=== PATIENT | female | born 1995 | race Caucasian/White ===

== ENCOUNTER 2021-09-18 12:00 | Inpatient (IN) | payer MEDICAID, OTHER ==
[~2021-09-18] VITALS: Ht 160 cm; Wt 53.6 kg
[2021-09-18] MEDS ORDERED: ONDANSETRON HCL 4 MG/2 ML VIAL IV ONE (12:30)
[2021-09-18] MEDS ORDERED: MORPHINE SULFATE INJECTION 2 MG/ML SYRG IV ONE (12:30)
[2021-09-18] MEDS ORDERED: SODIUM CHLORIDE 0.9% 500 ML IVB ONE (12:30)
[2021-09-18 13:28] LABS: Eosinophils # (auto) 0.1 10 ^3/uL (0-0.8); Eosinophils % (auto) 0.5 % (0.0-7.0)
[2021-09-18 13:30] LABS: Basophils # (auto) 0.2 10 ^3/uL (0-0.2); Basophils % (auto) 1.1 % (0.0-2.0); Hematocrit 21.1 % (36.0-46.0); Hemoglobin 7.4 g/dL (12.2-16.2); Lymphocytes % (auto) 13.8 % (10.0-50.0); Mean Corpuscular Hemoglobin 32.4 pg (28.0-32.0); Mean Corpuscular Hgb Conc. 35.1 g/dL (32.0-36.0); Mean Corpuscular Volume 92.2 fL (80.0-100.0); Monocytes # (auto) 0.6 10 ^3/uL (0-1.3); Neutrophils # (auto) 11.4 10 ^3/uL (1.6-8.6); Neutrophils % (auto) 80.6 % (37.0-80.0); Nucleated Red Blood Cells % 0.2 %; Red Blood Cells 2.29 10^6/uL (4.0-5.20); Red Cell Distribution Width 12.4 % (11.8-14.3); White Blood Cell 14.2 10^3/uL (4.4-10.8)
[2021-09-18 13:46] LABS: Albumin 2.9 g/dL (3.4-5.0); Calcium 8.1 mg/dL (8.5-10.1); Potassium 3.7 mmol/L (3.5-5.1)
[2021-09-18 13:48] LABS: BUN/Creatinine Ratio 23.5
[2021-09-18 13:50] LABS: Bilirubin, Total 0.4 mg/dL (0.2-1.0); Total Protein 5.7 g/dL (6.4-8.2)
[2021-09-18 14:18] LABS: INR 0.98 (0.9-1.15); Partial Thromboplastin Time 23.3 sec (23.6-33.0)
[2021-09-18] MEDS ORDERED: IOHEXOL 300 MG/ML 100ML BOTTLE IJ ONE (14:51)
[2021-09-18] MEDS ORDERED: LACT. RINGERS/OXYTOCIN 20UNITS 1,000 ML IV ONE (15:00)
[2021-09-18 16:40] VITALS: BP 119/38
[2021-09-18 17:00] VITALS: BP 109/53
[2021-09-18] MEDS: MORPHINE SULFATE 4 MG/ML SYR/VIAL IV PRN ×2 (17:14→23:28)
[2021-09-18 17:29] VITALS: BP 109/53
[2021-09-18 17:55] VITALS: BP 109/55
[2021-09-18] MEDS ORDERED: metroNIDAZOLE 500MG/100ML 100 ML IV ONE (18:15)
[2021-09-18] MEDS ORDERED: SUCCINYLCHOLINE CHLORIDE 20 MG/ML 10ML VIAL IV ONE (18:45)
[2021-09-18] MEDS ORDERED: FAMOTIDINE (10MG/ML) 2ML VL IV ONE (18:45)
[2021-09-18] MEDS ORDERED: ROCURONIUM 10MG/ML 10ML VIAL IV ONE (18:45)
[2021-09-18] MEDS ORDERED: MIDAZOLAM HCL 2MG/2ML 2ml VIAL (1mg/ml) ONE (18:46)
[2021-09-18] MEDS ORDERED: HYDROmorphone HCL 2 MG/ML VL ONE (18:46)
[2021-09-18] MEDS ORDERED: fentaNYL CITRATE 100 MCG/2 ML VL ONE (18:46)
[2021-09-18] MEDS ORDERED: DexAMETHasone SOD PHOS 10MG/1ML VIAL INJ ONE (18:47)
[2021-09-18] MEDS ORDERED: LIDOCAINE 2% (LOCAL ANESTH.) PF 5ml SDV ONE (18:47)
[2021-09-18] MEDS ORDERED: PROPOFOL 10 MG/ML 20 ML IV ONE (18:47)
[2021-09-18] MEDS ORDERED: ONDANSETRON HCL 4 MG/2 ML VIAL ONE (18:47)
[2021-09-18] MEDS ORDERED: GLYCOPYRROLATE 0.2 MG/ML 1ML VIAL ONE (18:47)
[2021-09-18] MEDS ORDERED: ceFAZolin 1GM/50ML 100 ML IV ONE (18:47)
[2021-09-18] MEDS ORDERED: oxyTOCIN 10 UNIT/ML 10ML VIAL ONE (19:17)
[2021-09-18] MEDS ORDERED: CARBOPROST TROMETHAMINE 250 MCG/1ML VIAL IM ONE (19:30)
[2021-09-18] MEDS ORDERED: METHYLERGONOVINE MALEATE 0.2 MG/ML AMP IM ONE (19:30)
[2021-09-18] MEDS ORDERED: MEPERIDINE HCL (25 MG/ML) 1ML VIAL ONE (20:11)
[2021-09-18] MEDS: LACT. RINGERS/OXYTOCIN 20UNITS 1,000 ML IV SCH (20:45)
[2021-09-18] MEDS ORDERED: ONDANSETRON HCL 4 MG/2 ML VIAL IV PRN ×2 (20:45→21:00)
[2021-09-18] MEDS ORDERED: HYDROmorphone HCL 2 MG/ML VL IV PRN ×2 (20:45→21:00)
[2021-09-18] MEDS ORDERED: OXYTOCIN 10UNIT/ML 1ML VIAL ONE (20:49)
[2021-09-18 21:40] VITALS: BP 102/41
[2021-09-18 22:00] VITALS: BP 102/41
[2021-09-19] MEDS: LACT. RINGERS/OXYTOCIN 20UNITS 1,000 ML IV SCH (03:25)
[2021-09-19] MEDS: MORPHINE SULFATE 4 MG/ML SYR/VIAL IV PRN ×2 (04:06→09:28)
[2021-09-19 05:00] VITALS: BP 102/55
[2021-09-19] MEDS: SODIUM CHLORIDE 0.9% 1,000 ML IV SCH ×3 (05:48→08:39)
[2021-09-19] MEDS ORDERED: metroNIDAZOLE 500MG/100ML 100 ML IV SCH (06:00)
[2021-09-19 06:05] LABS: Basophils # (auto) 0.1 10 ^3/uL (0-0.2); Basophils % (auto) 0.5 % (0.0-2.0); Eosinophils # (auto) 0 10 ^3/uL (0-0.8); Hematocrit 24.3 % (36.0-46.0); Hemoglobin 8.7 g/dL (12.2-16.2); Lymphocytes # (auto) 1.2 10 ^3/uL (0.4-5.4); Lymphocytes % (auto) 9.8 % (10.0-50.0); Mean Corpuscular Hemoglobin 31.8 pg (28.0-32.0); Mean Corpuscular Hgb Conc. 35.7 g/dL (32.0-36.0); Monocytes # (auto) 0.3 10 ^3/uL (0-1.3); Monocytes % (auto) 2.1 % (0.0-12.0); Neutrophils # (auto) 10.4 10 ^3/uL (1.6-8.6); Neutrophils % (auto) 87.6 % (37.0-80.0); Nucleated Red Blood Cells % 0.1 %; Red Blood Cells 2.73 10^6/uL (4.0-5.20); Red Cell Distribution Width 13.2 % (11.8-14.3); White Blood Cell 11.9 10^3/uL (4.4-10.8)
[2021-09-19 06:24] LABS: INR 0.98 (0.9-1.15)
[2021-09-19 06:37] LABS: Albumin 2.3 g/dL (3.4-5.0); Calcium 7.3 mg/dL (8.5-10.1); Potassium 4.1 mmol/L (3.5-5.1)
[2021-09-19 06:38] LABS: BUN/Creatinine Ratio 16.7
[2021-09-19 06:41] LABS: Bilirubin, Total 0.6 mg/dL (0.2-1.0); Total Protein 4.7 g/dL (6.4-8.2)
[2021-09-19] MEDS ORDERED: LACTATED RINGER'S 1,000 ML IV SCH (08:30)
[2021-09-19 08:55] VITALS: BP 100/48
[2021-09-19 09:46] VITALS: BP 100/60
[2021-09-19 13:00] VITALS: BP 100/36
== END 2021-09-19 13:45 | disposition home or self-care (01) | DRG 543 ==
LOC: ER 12:00 → OVERFLOW 16:19 → WEST WING 21:40
PROVIDERS: ADMIT Registered Nurse; ATTEND Family Medicine
PROC: 30233N1 Transfusion of Nonautologous Red Blood Cells into Peripheral Vein, Percutaneous Approach (ICD-10-PCS; 2021-09-18)
PROC: 10D18ZZ Extraction of Products of Conception, Retained, Via Natural or Artificial Opening Endoscopic (ICD-10-PCS; principal; 2021-09-19)
DX: O03.4 Incomplete spontaneous abortion without complication (principal); D62 Acute posthemorrhagic anemia; N85.2 Hypertrophy of uterus; N93.9 Abnormal uterine and vaginal bleeding, unspecified; Z20.822 Contact with and (suspected) exposure to COVID-19; Z82.49 Family history of ischemic heart disease and other diseases of the circulatory system; Z80.0 Family history of malignant neoplasm of digestive organs
CPT/HCPCS: 36415; 74177; 76856; 80053; 84702; 85025; 85610; 85730; 86850; 86900; 86901; 86920; 96365; 96366; 96367; 96375; 96376; 99291; G0378; J0330; J0690; J1100; J2001; J2250; J2405; J2590; J2704; J3490

== ENCOUNTER 2021-12-04 12:53 | Emergency (ER) | payer MEDICAID ==
[~2021-12-04] VITALS: Ht 160 cm; Wt 49.9 kg
[2021-12-04 13:23] VITALS: BP 127/69
== END 2021-12-04 13:35 | disposition home or self-care (01) ==
LOC: ER 12:53
DX: S61.012A Laceration without foreign body of left thumb without damage to nail, initial encounter (principal); W25.XXXA Contact with sharp glass, initial encounter; Y93.89 Activity, other specified; Y92.89 Other specified places as the place of occurrence of the external cause; Y99.8 Other external cause status
CPT/HCPCS: 12001

== ENCOUNTER 2021-12-16 15:27 | Emergency (ER) | payer MEDICAID ==
[~2021-12-16] VITALS: Ht 160 cm; Wt 54.0 kg
[2021-12-16 15:46] VITALS: BP 123/75
[2021-12-16] MEDS ORDERED: IBUP800T27 PO (17:11)
[2021-12-16] MEDS ORDERED: CLIN300C8 PO (17:11)
[2021-12-16] MEDS ORDERED: IBUPROFEN 800 MG TAB PO ONE (17:15)
== END 2021-12-16 17:29 | disposition home or self-care (01) ==
LOC: ER 15:27
DX: S00.83XA Contusion of other part of head, initial encounter (principal); K04.7 Periapical abscess without sinus; Y08.89XA Assault by other specified means, initial encounter; Y93.89 Activity, other specified; Y92.89 Other specified places as the place of occurrence of the external cause; Y99.8 Other external cause status
CPT/HCPCS: 70110

== ENCOUNTER 2022-02-18 15:18 | Emergency (ER) | payer MEDICAID ==
[~2022-02-18] VITALS: Ht 160 cm; Wt 51.3 kg
[~2022-02-18 15:18] MED LIST: CLIN300C8 PO; IBUP800T27 PO
[2022-02-18 16:46] VITALS: BP 122/74
[2022-02-18] MEDS ORDERED: IBUPROFEN 600 MG TAB PO ONE (17:00)
[2022-02-18] MEDS ORDERED: IBUP600T27 PO (17:07)
== END 2022-02-18 17:15 | disposition home or self-care (01) ==
LOC: ER 15:18
DX: S83.91XA Sprain of unspecified site of right knee, initial encounter (principal); Z79.1 Long term (current) use of non-steroidal anti-inflammatories (NSAID); Z79.2 Long term (current) use of antibiotics; W01.0XXA Fall on same level from slipping, tripping and stumbling without subsequent striking against object, initial encounter; Y93.89 Activity, other specified; Y92.89 Other specified places as the place of occurrence of the external cause; Y99.8 Other external cause status
CPT/HCPCS: 73562

== ENCOUNTER 2023-03-14 16:01 | Emergency (ER) | payer MEDICAID ==
[~2023-03-14] VITALS: Ht 160 cm; Wt 57.2 kg
[~2023-03-14 16:01] MED LIST changes: +CLIN300C70 PO; -CLIN300C8 PO; +IBUP-1454 PO; +IBUP-1456 PO; -IBUP800T27 PO
[2023-03-14 16:40] LABS: Basophils # (auto) 0.1 10 ^3/uL (0-0.2); Basophils % (auto) 0.6 % (0.0-2.0); Eosinophils # (auto) 0 10 ^3/uL (0-0.8); Eosinophils % (auto) 0.5 % (0.0-7.0); Hematocrit 40.8 % (36.0-46.0); Hemoglobin 13.6 g/dL (12.2-16.2); Lymphocytes % (auto) 22.1 % (10.0-50.0); Mean Corpuscular Hemoglobin 30.8 pg (28.0-32.0); Mean Corpuscular Hgb Conc. 33.2 g/dL (32.0-36.0); Mean Corpuscular Volume 92.6 fL (80.0-100.0); Monocytes # (auto) 0.7 10 ^3/uL (0-1.3); Monocytes % (auto) 7.8 % (0.0-12.0); Neutrophils # (auto) 6.2 10 ^3/uL (1.6-8.6); Red Cell Distribution Width 13.8 % (11.8-14.3)
[2023-03-14 16:56] LABS: Urine Bacteria FEW /hpf (None Seen); Urine Blood 3+ /uL (Negative); Urine Budding Yeast FEW /hpf (None Seen); Urine Clarity HAZY (Clear); Urine Color Yellow (Yellow); Urine Protein, UAD 1+ (Negative); Urine Specific Gravity 1.005 (1.001-1.035); Urine Urobilinogen Normal (Negative); Urine WBC 5 /hpf (0 - 5); Urine pH 6.5 (5.0-8.0)
[2023-03-14 17:01] LABS: Alanine Aminotransferase 13 U/L (7-40); Albumin 4.5 g/dL (3.2-4.8); Alkaline Phosphatase 60 U/L (46-116); Anion Gap 5.9 (5-15); Aspartate Aminotransferase < 8 U/L (13-40); Calcium 9.8 mg/dL (8.5-10.1); Carbon Dioxide 24.1 mmol/L (20-30); Chloride 108 mmol/L (98-107); Glucose 97 mg/dL (74-106); Sodium 138 mmol/L (136-145)
[2023-03-14 17:02] LABS: BUN/Creatinine Ratio 6.9 (10.0-20.0); Bilirubin, Total 0.8 mg/dL (0.2-1.0); Blood Urea Nitrogen < 5 mg/dL (9-23); Total Protein 6.7 g/dL (5.7-8.2)
[2023-03-14] MEDS ORDERED: ALPR0.25 PO (18:45)
[2023-03-14] MEDS ORDERED: NITR-87 PO (18:45)
[2023-03-14 21:35] VITALS: BP 121/68; PULSE 86; RESP 15; TEMP 98.7; O2SAT 100
== END 2023-03-14 21:45 | disposition home or self-care (01) ==
LOC: ER 16:01
DX: F41.9 Anxiety disorder, unspecified (principal); N39.0 Urinary tract infection, site not specified; Z79.1 Long term (current) use of non-steroidal anti-inflammatories (NSAID); Z79.899 Other long term (current) drug therapy
CPT/HCPCS: 36415; 71046; 80053; 81001; 84484; 85025; 93005